=== PATIENT | male | born 1995 | race Caucasian/White ===

== ENCOUNTER 2017-04-18 16:30 | Emergency (ER) | payer MEDICAID ==
[~2017-04-18] VITALS: Ht 193 cm; Wt 115.0 kg
[2017-04-18 16:34] VITALS: BP 163/86; PULSE 118; RESP 15; TEMP 98.8; O2SAT 98
[2017-04-18] MEDS ORDERED: FLUT1SPR5 EACH NARE (17:51)
[2017-04-18] MEDS ORDERED: AMOX875T PO (17:51)
--- NOTE | 2017-04-18 17:51 | PD ---
HPI Chief Complaint: ENT Complaint Time Seen by Provider: 17:45 Travel History International Travel<30 days: No Contact w/Intl Traveler<30days: No Traveled to known affect area: No History of Present Illness HPI 22-year-old male presents to our department with ongoing throat pain and feeling that "something is in there ". Patient is currently on amoxicillin 500 mg 3 times a day for dental discomfort which he has been on for the past 5 days. He has bilateral ear discomfort as well as sinus congestion patient feels like he needs to cough something up but can't. Patient denies fever, chills, or other symptoms. He has no shortness of breath or chest discomfort. Return or other abdominal symptoms. Patient feels that the throat issue is worsening in the last 3 days. He has no known drug allergies. [facility] Past Medical History Medical History: Denies Significant Hx Tetanus Vaccination: > 5 Years Past Surgical History Surgical History: No Previous Surgery Social History Alcohol Use: No Tobacco Use: No Substance Use: No Review of Systems Except as stated in HPI: all other systems reviewed are Neg General / Constitutional: No: Fever, Chills Eyes: No: Visual changes HENT: Positive: Headaches, Sore Throat, Rhinitis, Rhinorrhea, Congestion, Dental Difficulties, Earache, No: Vertigo, Lightheadedness, Nosebleed, Neck Stiffness, Neck Pain, Gingival Bleeding, Ear Discharge Cardiovascular: No: Chest Pain or Discomfort Respiratory: No: Cough, Shortness of Breath, Wheezing Gastrointestinal: No: Abdominal Pain Genitourinary: No: Dysuria Musculoskeletal: No: Pain Skin: No Rash Neurologic: No: Weakness Psychiatric: No: Depression Endocrine: No: Polydipsia Hematologic/Lymphatic: No: Easy Bruising Physical Exam Narrative GENERAL: Patient appears in no acute distress. SKIN: Warm and dry. Normal color. Normal turgor. HEAD: Atraumatic. Normocephalic. Mild sinus tenderness in both maxillary sinuses. EYES: Pupils equal and round. No scleral icterus. No injection or drainage. ENT: No nasal bleeding or discharge. Mucous membranes pink and moist. TMs are clear bilaterally. Pharynx has mild cobblestoning with erythema and postnasal drip noted in the posterior pharynx. No significant tonsillitis. Uvula is midline. No sign of dental abscess. NECK: Trachea midline. No bony tenderness or step-off. Neck is supple and without significant lymphadenopathy. No sign of Bruce angina. CARDIOVASCULAR: Regular rate and rhythm. RESPIRATORY: No accessory muscle use. Clear to auscultation. Breath sounds equal bilaterally. GASTROINTESTINAL: Abdomen soft, non-tender, nondistended. Hepatic and splenic margins not palpable. MUSCULOSKELETAL: Extremities without clubbing, cyanosis, or edema. No obvious deformities. NEUROLOGICAL: Awake and alert. No obvious cranial nerve deficits. Motor grossly within normal limits. Five out of 5 muscle strength in the arms and legs. Normal speech. PSYCHIATRIC: Appropriate mood and affect; insight and judgment normal. Data Data Last Documented VS Vital Signs Date Time Temp Pulse Resp B/P Pulse Ox O2 Delivery O2 Flow Rate FiO2 04/18/17 17:36 15 04/18/17 16:34 98.8 118 163/86 98 MDM Medical Decision Making Medical Screen Exam Complete: Yes Emergency Medical Condition: Yes Differential Diagnosis Sinusitis. Postnasal drip. Dental pain. TMJ. Narrative Course Patient is medically stable at time of exam. Patient will take an increased dose of amoxicillin 875 twice a day. Patient will start on Flonase nasal spray 2 sprays each nostril daily. Patient to continue ibuprofen and Tylenol as previously and follow up with dentist as scheduled. Patient can return the emergency Department with worsening symptoms as needed or local primary care physician. Diagnosis Primary Impression: Sinusitis, acute Qualified Code: J01.40 - Acute non-recurrent pansinusitis Additional Impression: Postnasal drip Patient Instructions: General Instructions, Sinusitis (ED) Additional Instructions: Patient will take an increased dose of amoxicillin 875 twice a day. Patient will start on Flonase nasal spray 2 sprays each nostril daily. Patient to continue ibuprofen and Tylenol as previously and follow up with dentist as scheduled. Patient can return the emergency Department with worsening symptoms as needed or local primary care physician. Med/Other Pt SpecificInfo: Prescription(s) given Disposition: DISCHARGE HOME Condition: Stable Geovani Lemons Apr 18, 2017 17:50
== END 2017-04-18 17:58 | disposition home or self-care (01) ==
LOC: NEPD 16:30
DX: J01.40 Acute pansinusitis, unspecified (principal); R09.82 Postnasal drip
CPT/HCPCS: 99284